=== PATIENT | male | born 1970 | race Caucasian/White ===

== ENCOUNTER 2020-09-22 18:35 | Emergency (ER) | payer SELFPAY ==
--- NOTE | 2020-09-22 18:43 | ED Chest Pain ---
General Stated Complaint: CHEST PAIN Source: patient Exam Limitations: no limitations History of Present Illness Date Seen by Provider: Sep 22, 2020 Time Seen by Provider: 18:42 Initial Comments 50-year-old male presents with sudden onset of sharp and intermittent left-sided chest pain occurring every few minutes with radiation to his left arm. Started about 1 hour prior to arrival, he lives [place] and drove himself to the ER. On arrival the pain had stopped completely. He denies any previous occurrence of similar pain. Was at rest sitting outdoors when it for started. He says it was rather shocking and sudden and obviously concerning. Denies any recent illness, fever chills or cough. Denies any heart condition or history, although he did have a normal stress test about 5 years ago. Patient with past medical history of type 2 diabetes and hypertension, he had a hemoglobin A1c of over 11 several months ago and was told by his doctor he needed to lose weight and change his diet or does not have a stroke. Patient was very motivated, stopped eating sweets, drinking sugary drinks and lost over 30 pounds in a few months and since then is off his diabetes medicine with a recent A1c of 5. His 1 significant cardiac risk factor being a long-term smoker as well as male over 50. Also significant life stressor of losing his son in April. Allergies and Home Medications Allergies Coded Allergies: NSAIDS (Non-Steroidal Anti-Inflamma (Verified Allergy, Severe, anaphylaxis, 09/22/20) Home Medications Nitroglycerin 0.4 Mg Tab.subl, 0.4 MG SL UD PRN for CHEST PAIN Prescribed by: DEIRDRE LING on 09/22/20 433 Patient Home Medication List Home Medication List Reviewed: Yes Review of Systems Review of Systems Constitutional: No fever, No malaise, No weakness Respiratory: Denies Cough, Denies Shortness of Air Cardiovascular: Chest Pain; Denies Edema, Denies Lightheadedness, Denies Palpit ations, Denies Syncope Gastrointestinal: Denies Abdominal Pain, Denies Nausea, Denies Vomiting Musculoskeletal: No back pain, No joint pain Skin: No change in color, No rash Psychiatric/Neurological: Denies Headache, Denies Numbness, Denies Paresthesia, Denies Weakness Past Dnuopbk-Elobid-Aokhjr Hx Past Med/Social Hx: Reviewed Nursing Past Med/Soc Hx Patient Social History Smoking Status: Current Everyday Smoker Physical Exam Vital Signs Vital Signs - First Documented 09/22/20 18:50 Temp 36.8 Pulse 84 Resp 20 B/P (MAP) 134/87 (103) Pulse Ox 96 Capillary Refill : Height, Weight, BMI Height: '" Weight: lbs. oz. kg; BMI Method: General Appearance: No Apparent Distress, WD/WN HEENT: PERRL/EOMI, Normal ENT Inspection Neck: Normal Inspection, Non Tender Respiratory: Chest Non Tender, Lungs Clear, Normal Breath Sounds, No Accessory Muscle Use, No Respiratory Distress Cardiovascular: Regular Rate, Rhythm, No Edema, No JVD Gastrointestinal: Non Tender, Soft Extremity: Normal Capillary Refill, Non Tender Neurologic/Psychiatric: Alert, Oriented x3, No Motor/Sensory Deficits Skin: Normal Color, Warm/Dry Progress/Results/Core Measures Results/Orders Lab Results Laboratory Tests Test 09/22/20 18:55 09/22/20 21:00 Range/Units White Blood Count 7.7 4.3-11.0 10^3/uL Red Blood Count 6.04 H 4.35-5.85 10^6/uL Hemoglobin 17.6 13.3-17.7 G/DL Hematocrit 50 40-54 % Mean Corpuscular Volume 83 80-99 FL Mean Corpuscular Hemoglobin 29 25-34 PG Mean Corpuscular Hemoglobin Concent 35 32-36 G/DL Red Cell Distribution Width 12.6 10.0-14.5 % Platelet Count 175 130-400 10^3/uL Mean Platelet Volume 9.1 7.4-10.4 FL Immature Granulocyte % (Auto) 0 % Neutrophils (%) (Auto) 57 42-75 % Lymphocytes (%) (Auto) 33 12-44 % Monocytes (%) (Auto) 9 0-12 % Eosinophils (%) (Auto) 0 0-10 % Basophils (%) (Auto) 0 0-10 % Neutrophils # (Auto) 4.4 1.8-7.8 X 10^3 Lymphocytes # (Auto) 2.6 1.0-4.0 X 10^3 Monocytes # (Auto) 0.7 0.0-1.0 X 10^3 Eosinophils # (Auto) 0.0 0.0-0.3 10^3/uL Basophils # (Auto) 0.0 0.0-0.1 10^3/uL Immature Granulocyte # (Auto) 0.0 0.0-0.1 10^3/uL Sodium Level 139 135-145 MMOL/L Potassium Level 4.0 3.6-5.0 MMOL/L Chloride Level 103 98-107 MMOL/L Carbon Dioxide Level 26 21-32 MMOL/L Anion Gap 10 5-14 MMOL/L Blood Urea Nitrogen 21 H 7-18 MG/DL Creatinine 0.91 0.60-1.30 MG/DL Estimat Glomerular Filtration Rate > 60 BUN/Creatinine Ratio 23 Glucose Level 131 H 70-105 MG/DL Calcium Level 9.4 8.5-10.1 MG/DL Corrected Calcium 9.2 8.5-10.1 MG/DL Total Bilirubin 0.3 0.1-1.0 MG/DL Aspartate Amino Transf (AST/SGOT) 16 5-34 U/L Alanine Aminotransferase (ALT/SGPT) 18 0-55 U/L Alkaline Phosphatase 74 40-136 U/L Troponin I < 0.30 < 0.30 <0.30 NG/ML Total Protein 6.7 6.4-8.2 GM/DL Albumin 4.3 3.2-4.5 GM/DL My Orders Orders - ROVENSTINE,DEIRDRE L DO Ed Iv/Invasive Line Start (09/22/20 18:43) Chest 1 View Ap/Pa Only (09/22/20 18:43) Ekg Tracing (09/22/20 18:43) Troponin I Fs (09/22/20 18:43) Cbc With Automated Diff (09/22/20 18:43) Comprehensive Metabolic Panel (09/22/20 18:43) Troponin I Fs (09/22/20 20:08) Vital Signs/I&O 09/22/20 18:50 Temp 36.8 Pulse 84 Resp 20 B/P (MAP) 134/87 (103) Pulse Ox 96 Progress Progress Note : Progress Note Discussed chest x-ray findings with patient and he explained past medical history significant for a traumatic left hemothorax over 20 years ago and that 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 Patient intermittently had s harp pain in his left chest and shoulder lasting for just a few seconds and resolving spontaneously not elicited with any movement or other factor. Normal EKG without any acute change, normal labs with negative troponin x2. Discussed follow-up and recommended stress test evaluation this coming week. He agrees and expresses understanding. Prescription for nitroglycerin for sustained chest pain more than a few minutes. Initial ECG Impression Date: Sep 22, 2020 Initial ECG Impression Time: 18:50 Initial ECG Rate: 80 Initial ECG Rhythm: Normal Sinus Initial ECG Intervals: Normal Initial ECG Impression: Normal Initial ECG Comparisson: No Previous ECG Available Diagnostic Imaging Diagonstic Imaging: Xray Plain Films/CT/US/NM/MRI: chest Comments Date of Exam:09/22/20 CHEST 1 VIEW AP/PA ONLY INDICATION: Left upper chest pain. EXAMINATION: Chest, 09/22/2020. FINDINGS: The heart is slightly prominent. Pulmonary vasculature is congested. There are coarse markings throughout the left hemithorax, many of which appear chronic. Superimposed infiltrates not excluded. There are findings of mild pulmonary edema. There is no pneumothorax. IMPRESSION: 1. Pulmonary edema with infiltrates in the left lung not excluded. 2. Pleural thickening versus fluid at the left lung base. Dictated on workstation # [id number] Dict: 09/22/201912 Trans: 09/22/201916 [facility] [id number] Interpreted by: TATIANNA MOTA MD Electronically signed by: Departure Impression Primary Impression: Chest pain Qualified Codes: R07.9 - Chest pain, unspecified Disposition: 01 HOME, SELF-CARE Condition: Stable Departure-Patient Inst. Decision time for Depature: 21:27 Referrals: JOSELUIS JOYNER MD FACP FAC CCDS BRUNA PATTERSON MD NO,LOCAL PHYSICIAN (PCP) Primary Care Physician Patient Instructions: Chest Pain (DC) Add. Discharge Instructions: Call Cardiology tomorrow to arrange for a "Stress Test" this week. If you have worsening chest pain, call 911 or go to the nearest hospital. Take Nitroglycerin (as instructed) for Chest pain lasting greater than a minute. Scripts Nitroglycerin (Nitroglycerin) 0.4 Mg Tab.subl 0.4 MG SL UD PRN for CHEST PAIN, #20 TAB Prov: DEIRDRE LING DO 09/22/20 DEIRDRE LING DO Sep 22, 2020 18:43
[2020-09-22 19:04] LABS: BASOPHILS % (AUTO) 0 % (0-10); EOSINOPHILS % (AUTO) 0 % (0-10); HEMATOCRIT 50 % (40-54); HEMOGLOBIN 17.6 G/DL (13.3-17.7); LYMPHOCYTES # (AUTO) 2.6 X 10^3 (1.0-4.0); LYMPHOCYTES % (AUTO) 33 % (12-44); MEAN CORPUSCULAR HEMOGLOBIN 29 PG (25-34); MEAN CORPUSCULAR HGB CONC 35 G/DL (32-36); MEAN CORPUSCULAR VOLUME 83 FL (80-99); MEAN PLATELET VOLUME 9.1 FL (7.4-10.4); MONOCYTES # (AUTO) 0.7 X 10^3 (0.0-1.0); MONOCYTES % (AUTO) 9 % (0-12); NEUTROPHILS # (AUTO) 4.4 X 10^3 (1.8-7.8); NEUTROPHILS % (AUTO) 57 % (42-75); PLATELET COUNT 175 10^3/uL (130-400); WHITE BLOOD COUNT 7.7 10^3/uL (4.3-11.0)
--- NOTE | 2020-09-22 19:17 | Diagnostic Imaging Report ---
INDICATION: Left upper chest pain. EXAMINATION: Chest, 09/22/2020. FINDINGS: The heart is slightly prominent. Pulmonary vasculature is congested. There are coarse markings throughout the left hemithorax, many of which appear chronic. Superimposed infiltrates not excluded. There are findings of mild pulmonary edema. There is no pneumothorax. IMPRESSION: 1. Pulmonary edema with infiltrates in the left lung not excluded. 2. Pleural thickening versus fluid at the left lung base. Dictated by: Dictated on workstation # [id number]
[2020-09-22 19:18] LABS: ALANINE AMINOTRANSFERASE 18 U/L (0-55); ALBUMIN 4.3 GM/DL (3.2-4.5); ALKALINE PHOSPHATASE 74 U/L (40-136); BILIRUBIN,TOTAL 0.3 MG/DL (0.1-1.0); BUN/CREATININE RATIO 23; CALCIUM 9.4 MG/DL (8.5-10.1); CARBON DIOXIDE 26 MMOL/L (21-32); CHLORIDE 103 MMOL/L (98-107); CREATININE SERUM 0.91 MG/DL (0.60-1.30); GFR ESTIMATED > 60; GLUCOSE 131 MG/DL (70-105); SODIUM 139 MMOL/L (135-145); TOTAL PROTEIN 6.7 GM/DL (6.4-8.2)
[2020-09-22] MEDS ORDERED: NITR0.4T39 SL (21:36)
[2020-09-22 21:42] VITALS: BP 122/78
== END 2020-09-22 21:42 | disposition home or self-care (01) ==
LOC: ER FS 18:39
DX: R07.9 Chest pain, unspecified (principal); I10 Essential (primary) hypertension; E11.9 Type 2 diabetes mellitus without complications; F17.200 Nicotine dependence, unspecified, uncomplicated
CPT/HCPCS: 36415; 71045; 80053; 84484; 85025; 93005

== ENCOUNTER 2022-03-22 17:49 | Emergency (ER) | payer OTHER ==
[~2022-03-22] VITALS: Ht 180.3 cm; Wt 107.0 kg
[~2022-03-22 17:49] MED LIST: NITR0.4T39 SL
[2022-03-22 17:55] VITALS: BP 162/94
[2022-03-22] MEDS ORDERED: LIDOCAINE 1% INJ 20 ML VIAL ONE (17:58)
[2022-03-22] MEDS ORDERED: LIDOCAINE 1% INJ 20 ML VIAL INJ STA (17:59)
[2022-03-22] MEDS ORDERED: TETANUS,DIPTH,PERTUSS P/F (BOOSTRIX) 0.5 ML VIAL IM ONE (18:00)
--- NOTE | 2022-03-22 18:05 | ED Upper Extremity ---
General Chief Complaint: Laceration Stated Complaint: LT HAND LAC Source: patient Exam Limitations: no limitations History of Present Illness Date Seen by Provider: Mar 22, 2022 Time Seen by Provider: 17:51 Initial Comments 52-year-old male presenting with complaints of laceration to his left hand. He was trying to cut a boot off and accidentally cut into his left hand. He has bleeding from the wound. Its at the base of his left index finger. He is right-hand dominant. He believes his last tetanus shot was more than 5 years ago. He was unable to get bleeding to stop at home so he came to the emergency department. He denies having any numbness or tingling in the index finger. He has normal range of motion of the finger as well. Onset: this evening Severity: mild Pain/Injury Location: left 2nd finger Method of Injury: incised Modifying Factors: Worse With Movement Allergies and Home Medications Allergies Coded Allergies: NSAIDS (Non-Steroidal Anti-Inflamma (Verified Allergy, Severe, anaphylaxis, 09/22/20) Patient Home Medication List Home Medication List Reviewed: Yes Nitroglycerin (Nitroglycerin) 0.4 Mg Tab.subl, 0.4 MG SL UD PRN for CHEST PAIN Prescribed by: DEIRDRE LING on 09/22/202135 Review of Systems Constitutional: No chills, No fever EENTM: no symptoms reported Respiratory: no symptoms reported Cardiovascular: no symptoms reported Gastrointestinal: no symptoms reported Genitourinary: no symptoms reported Musculoskeletal: see HPI Skin: see HPI Psychiatric/Neurological: See HPI Past Uneulax-Lpcqgp-Jdsffo Hx Seasonal Allergies Seasonal Allergies: No Past Medical History Surgeries: Yes Orthopedic Respiratory: No Cardiac: Yes High Cholesterol, Hypertension Neurological: No Genitourinary: No Gastrointestinal: No Musculoskeletal: No Endocrine: Yes Diabetes, Non-Insulin dep HEENT: No Cancer: No Psychosocial: No Integumentary: No Blood Disorders: No Physical Exam Vital Signs Vital Signs - First Documented 03/22/22 17:55 Temp 36.4 Pulse 106 Resp 18 B/P (MAP) 162/94 (116) Pulse Ox 94 O2 Delivery Room Air Capillary Refill : Height, Weight, BMI Height: '" Weight: lbs. oz. 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 A total of 6 mL of 1% plain lidocaine were infiltrated for anesthetic effect. Then using 250 mL of sterile water with Betadine and the wound was irrigated. No foreign bodies were found were seen. Patient tolerated this well without any immediate complication. Using 4-0 Ethilon a total of 6 simple interrupted stitches were placed. Counseled on follow-up and return precautions. Advised to have the stitches out in approximately 10 to 14 days. Be seen sooner if having concerns for infection. Counseled on general wound care. Finger splint to help limit movement at index finger MCP joint. Progress/Results/Core Measures Results/Orders My Orders Orders - AUGUSTINE ESPINAL MD Dipht,Pertrafael(Acell),Tet Adult (Boostrix (03/22/22 18:00) Lidocaine 1% Inj 20 Ml (Xylocaine 1% Inj (03/22/22 17:59) Suture Set At Bedside (03/22/22 17:59) Wound Dressing-Ed (03/22/22 17:59) Lidocaine 1% Inj 20 Ml (Xylocaine 1% Inj (03/22/22 17:58) Ed Ortho/Other Supplies Order (03/22/22 18:38) Nursing Communication (Order) (03/22/22 18:38) Medications Given in ED Current Medications Medications Dose Ordered Sig/Radha Route Start Time Stop Time Status Last Admin Dose Admin Diphtheria/ Tetanus/Acell Pertussis 0.5 ml ONCE ONCE IM 03/22/22 18:00 03/22/22 18:01 DC 03/22/22 18:08 0.5 ML Vital Signs/I&O 03/22/22 17:55 Temp 36.4 Pulse 106 Resp 18 B/P (MAP) 162/94 (116) Pulse Ox 94 O2 Delivery Room Air Progress Progress Note : Progress Note Update tetanus booster and repair laceration with 4-0 Ethilon. Departure Impression Primary Impression: Laceration of left hand without complication, including fingers Qualified Codes: S61.412A - Laceration without foreign body of left hand, initial encounter; S61.219A - Laceration without foreign body of unspecified finger without damage to nail, initial encounter Disposition: HOME, SELF-CARE Condition: Stable Departure-Patient Inst. Decision time for Depature: 18:37 Referrals: NO,LOCAL PHYSICIAN (PCP/Family) Primary Care Physician Patient Instructions: Laceration Repair With Stitches ED, Wound Care ED Add. Discharge Instructions: Keep wound clean and dry for first 24 hours then may remove the dressing and clean with soap and water but do not soak the wound. Wear the splint to help limit movement of the wound. This will help it heal faster. After the first 24 hours you could apply antibiotic ointment and bandage 2 times a day as needed to keep wound covered if it might get dirty Stitches out in 10-14 days but be seen sooner if having signs of infection such as redness streaking up the hand, pus draining from the wound or fever over 101 F. All discharge instructions reviewed with patient and/or family. Voiced understanding. AUGUSTINE ESPINAL MD Mar 22, 2022 18:05
== END 2022-03-22 18:40 | disposition home or self-care (01) ==
LOC: EDUNIT# 17:49 → ER FS 17:52
DX: S61.211A Laceration without foreign body of left index finger without damage to nail, initial encounter (principal); Z28.310 Unvaccinated for COVID-19; Z23 Encounter for immunization; W26.0XXA Contact with knife, initial encounter
CPT/HCPCS: 12001; 90715